=== PATIENT | female | born 1940 | race Caucasian/White ===

== ENCOUNTER → 2017-10-31 | Outpatient (CLI) | payer MEDICARE ==
[~2017-10-31] MED LIST: ASPI-515 PO; ATOR40TA78 PO; CHOL2000 PO; CHOL200074 PO; CITA20TA9 PO; CITA40TA5 PO; CLOB15CR19 TP; CLOP75TA PO; ESTR0.6246 PO; FLUO40CA2 PO; GABA300C10 PO; HYDR-3240 PO; IBUP-1223 PO; LEVO100T5 PO; LEVO75TA5 PO; LISI-167 PO; LORA10TA3 PO; METO25TA35 PO; NAPR250T6 PO; OXYC-302 PO; TRAZ50TA18 PO
== END | disposition home or self-care (01) ==
LOC: RAD 14:58
PROVIDERS: ATTEND Registered Nurse
DX: S06.0X9S Concussion with loss of consciousness of unspecified duration, sequela (principal); R51 Headache; X58.XXXS Exposure to other specified factors, sequela
CPT/HCPCS: 70450

== ENCOUNTER 2017-12-19 10:50 | Emergency (ER) | payer MEDICARE ==
[~2017-12-19] VITALS: Ht 162.6 cm; Wt 65.0 kg
[2017-12-19] MEDS ORDERED: ONDANSETRON 2MG/ML, 2ML ONE (11:23)
[2017-12-19] MEDS ORDERED: ONDANSETRON ODT 4 MG PO ONE (11:30)
[2017-12-19 11:46] LABS: BASOPHILS # (AUTO) 0.04 x10^3/uL (0-0.1); BASOPHILS % (AUTO) 1 % (0-1); EOSINOPHILS # (AUTO) 0.13 x10^3/uL (0-0.4); EOSINOPHILS % (AUTO) 2 % (1-7); LYMPHOCYTES # (AUTO) 1.27 x10^3/uL (1-3.4); LYMPHOCYTES % (AUTO) 16 % (22-44); MD NO; MEAN CORPUSCULAR HEMOGLOBIN 32.2 pg (27.0-34.8); MEAN CORPUSCULAR HGB CONC 33.9 g/dL (32.4-35.8); MEAN CORPUSCULAR VOLUME 95.1 fL (80-100); MEAN PLATELET VOLUME 7.9 fL (7.4-10.4); MONOCYTES # (AUTO) 0.55 x10^3/uL (0.2-0.8); MONOCYTES % (AUTO) 7 % (2-9); NEUTROPHILS # (AUTO) 5.72 x10^3/uL (1.8-6.8); NEUTROPHILS % (AUTO) 74 % (42-75); PLATELET COUNT 263 x10^3/uL (130-400); RED BLOOD COUNT 4.22 x10^6/uL (3.82-5.3); RED CELL DISTRIBUTION WIDTH 14.1 % (9.6-15.2)
[2017-12-19] MEDS ORDERED: BACITRACIN ZINC OINT 500U/GM, 0.9 GM ONE (11:54)
[2017-12-19 11:55] LABS: ALANINE AMINOTRANSFERASE 25 U/L (12-78); ALBUMIN 3.6 g/dL (3.4-5.0); ANION GAP 8 mmol/L (5-15); CALCIUM 8.9 mg/dL (8.5-10.1); CHLORIDE 106 mmol/L (98-107); CREATININE 0.78 mg/dL (0.55-1.02)
[2017-12-19] MEDS ORDERED: MORPHINE SULFATE 4 MG/ML, 1ML ONE (11:55)
[2017-12-19 11:57] LABS: ALKALINE PHOSPHATASE 91 U/L (45-117); BILIRUBIN,TOTAL 0.6 mg/dL (0.2-1.0); TOTAL PROTEIN 6.9 g/dL (6.4-8.2)
[2017-12-19] MEDS ORDERED: MORPHINE SULFATE 4 MG/ML, 1ML IVPush PRN (12:00)
[2017-12-19 13:48] VITALS: BP 127/63
== END 2017-12-19 14:37 | disposition home or self-care (01) ==
LOC: ED 12:52
DX: S06.0X0A Concussion without loss of consciousness, initial encounter (principal); S00.83XA Contusion of other part of head, initial encounter; G30.9 Alzheimer's disease, unspecified; F02.80 Dementia in other diseases classified elsewhere, unspecified severity, without behavioral disturbance, psychotic disturbance, mood disturbance, and anxiety; K21.9 Gastro-esophageal reflux disease without esophagitis; E78.00 Pure hypercholesterolemia, unspecified; I10 Essential (primary) hypertension; E03.9 Hypothyroidism, unspecified; W01.0XXA Fall on same level from slipping, tripping and stumbling without subsequent striking against object, initial encounter; Y93.89 Activity, other specified; Y92.009 Unspecified place in unspecified non-institutional (private) residence as the place of occurrence of the external cause; Y99.8 Other external cause status
CPT/HCPCS: 36415; 70450; 72125; 73080; 80053; 85025; 96374; 99285; Q0162

== ENCOUNTER → 2018-03-19 | Outpatient (CLI) | payer MEDICARE ==
[~2018-03-19] MED LIST changes: +TRAZ-136 PO; -TRAZ50TA18 PO
== END | disposition home or self-care (01) ==
LOC: CFH 15:20
PROVIDERS: ATTEND Podiatrist Foot & Ankle Surgery
DX: M79.605 Pain in left leg (principal); M79.89 Other specified soft tissue disorders

== ENCOUNTER 2018-07-09 13:56 | Emergency (ER) | payer MEDICARE ==
[~2018-07-09] VITALS: Ht 167.6 cm; Wt 60.0 kg
[~2018-07-09 13:56] MED LIST changes: +LORA-247 PO; -LORA10TA3 PO; -TRAZ-136 PO; +TRAZ50TA66 PO
--- NOTE | 2018-07-09 14:24 | NUR ---
Pt reports glf yesterday, c/o left sided neck pain since, also reports hx chronic "throat pain" for the last year. "My wants everything done today" Pt moving all extremties without difficulty. On cont cardiac and pulse ox monitoring. Pt appears anxious. Medics state pt live in [place] and "her said you guys always get her a shuttle home"
[2018-07-09] MEDS ORDERED: ACETAMINOPHEN 325 MG TABLET PO ONE (14:30)
[2018-07-09 14:45] LABS: BASOPHILS # (AUTO) 0.04 x10^3/uL (0-0.1); BASOPHILS % (AUTO) 1 % (0-1); EOSINOPHILS # (AUTO) 0.33 x10^3/uL (0-0.4); EOSINOPHILS % (AUTO) 6 % (1-7); LYMPHOCYTES % (AUTO) 20 % (22-44); MD NO; MEAN CORPUSCULAR HEMOGLOBIN 31.6 pg (27.0-34.8); MEAN CORPUSCULAR HGB CONC 33.4 g/dL (32.4-35.8); MEAN CORPUSCULAR VOLUME 94.7 fL (80-100); MEAN PLATELET VOLUME 7.8 fL (7.4-10.4); MONOCYTES # (AUTO) 0.45 x10^3/uL (0.2-0.8); MONOCYTES % (AUTO) 8 % (2-9); NEUTROPHILS # (AUTO) 3.87 x10^3/uL (1.8-6.8); NEUTROPHILS % (AUTO) 66 % (42-75); PLATELET COUNT 246 x10^3/uL (130-400); RED BLOOD COUNT 4.18 x10^6/uL (3.82-5.3); RED CELL DISTRIBUTION WIDTH 14.3 % (9.6-15.2)
[2018-07-09] MEDS ORDERED: ACETAMINOPHEN 325 MG TABLET ONE (14:49)
[2018-07-09 14:55] LABS: ALANINE AMINOTRANSFERASE 19 U/L (12-78); ALBUMIN 3.2 g/dL (3.4-5.0); ANION GAP 6 mmol/L (5-15); CALCIUM 9.2 mg/dL (8.5-10.1); CHLORIDE 109 mmol/L (98-107)
--- NOTE | 2018-07-09 14:56 | NUR ---
Pt able to swallow tylenol pills, pt did experience small coughing episode after each pill, airway remains intact, rm air remains above 94%, pt on cont cardiac and pulse ox monitoring. US at bedside.
[2018-07-09 15:07] LABS: BILIRUBIN,TOTAL 1.1 mg/dL (0.2-1.0); INTERNATIONAL NORMALIZED RATIO 1.01 (0.93-1.1); PROTHROMBIN TIME 10.7 Seconds (9.6-11.5)
[2018-07-09 15:08] LABS: ALKALINE PHOSPHATASE 130 U/L (45-117); TOTAL PROTEIN 6.8 g/dL (6.4-8.2)
[2018-07-09 15:41] VITALS: BP 127/59
--- NOTE | 2018-07-09 16:05 | NUR ---
Chart up for recheck, pt denies any needs/concerns
[2018-07-09] MEDS ORDERED: NAPROXEN 500 MG TABLET PO ONE (16:30)
[2018-07-09] MEDS ORDERED: NAPROXEN 500 MG TABLET ONE (16:46)
--- NOTE | 2018-07-09 17:06 | NUR ---
diagnostic radiologist and throughput and social worker psychiatric aware of pts need for transportation home. Pt unable to call for ride, states he recently had surgery. Dinner tray ordered, pt aware of plan
--- NOTE | 2018-07-09 17:12 | NUR ---
notified of pt's disp
--- NOTE | 2018-07-09 17:26 | NUR ---
Pt updated on [facility] eta, concered about cost of ambulance transportation, pt states he does not want to pay to have paramedics bring her, states he has a broken leg but will take the cast off. encouraged to let [facility] safely transport pt home, states he will call [facility] at this time to get an estimate for cost of transportation. RN [facility]
--- NOTE | 2018-07-09 17:44 | NUR ---
[facility] dispatch notified of husbands request to cancel transportation. RN will call to see how much a cab ride is, states he only has 90$wei.
--- NOTE | 2018-07-09 17:52 | NUR ---
called, states he got ahold of a friend from [employer] to drive him here to pick pt up. Pt aware
--- NOTE | 2018-07-09 18:09 | NUR ---
Dietary called to confirm they recieved order, states it did not print out but they will send tray
--- NOTE | 2018-07-09 18:29 | NUR ---
Pt given diet tray
== END 2018-07-09 19:36 | disposition home or self-care (01) ==
LOC: ED 15:54
DX: S29.9XXA Unspecified injury of thorax, initial encounter (principal); K21.9 Gastro-esophageal reflux disease without esophagitis; E03.9 Hypothyroidism, unspecified; E78.00 Pure hypercholesterolemia, unspecified; I10 Essential (primary) hypertension; Z86.73 Personal history of transient ischemic attack (TIA), and cerebral infarction without residual deficits; G30.9 Alzheimer's disease, unspecified; F02.80 Dementia in other diseases classified elsewhere, unspecified severity, without behavioral disturbance, psychotic disturbance, mood disturbance, and anxiety; W01.0XXA Fall on same level from slipping, tripping and stumbling without subsequent striking against object, initial encounter; Y93.89 Activity, other specified; Y92.009 Unspecified place in unspecified non-institutional (private) residence as the place of occurrence of the external cause; Y99.8 Other external cause status
CPT/HCPCS: 36415; 80053; 83605; 85025; 85610; 85730; 93005; 99284